=== PATIENT | male | born 1975 ===

== ENCOUNTER 2025-10-23 07:11 | Day surgery (SDC) | payer MEDICAID, SELFPAY ==
--- NOTE | 2025-10-23 07:32 | W.PM.OPSUD ---
Surgery/Procedure H&P Update DATE OF PROCEDURE: October 23, 2025 DATE H&P PERFORMED: 09/24/25 H&P UPDATE INFORMATION: I have reviewed H&P completed within last 30 days, I have examined patient prior to procedure, No changes to prior documentation, H&P is in [facility] EMR on date indicated and Risks and benefits of the procedure reviewed PLANNED PROCEDURE: Operation Date: 10/23/25 08:35 Proposed Procedures p Colonoscopy [id number] G0105 Z12.11(Not Applicable) - Reji Franks MD
[2025-10-23 07:45] VITALS: BP 136/91; PULSE 81; RESP 16; TEMP 36.4; O2SAT 97; BMI 28.3
--- NOTE | 2025-10-23 08:08 | ANES.PREANE2 ---
Pre-Anesthetic Assessment Height/Weight: Height 5 ft 5 in Weight 170 lb Temp Pulse Resp BP Pulse Ox O2 Del Method 97.6 F 81 16 136/91 97 Room Air 10/23/25 07:45 10/23/25 07:45 10/23/25 07:45 10/23/25 07:45 10/23/25 07:45 10/23/25 07:45 Preop Diagnosis: Screening colonoscopy Operation Date: 10/23/25 08:35 Proposed Procedures p Colonoscopy [id number] G0105 Z12.11(Not Applicable) - Reji Franks MD Was Beta Althea taken within 24 hours: N/A Was Clonidine taken within 24 hours: N/A Last intake: Intake Last Liquid Date 10/22/25 Last Liquid Time 23:30 Last Solid Date 10/21/25 Last Solid Time 21:00 Social No alcohol and No tobacco Exam alert, oriented x 3, clear to auscultation bilaterally and regular rate & rhythm Airway Submandibular: within normal limits Cervical ROM: within normal limits Mallampati: Class III Comments: Comments: Edentulous Anesthetic Plan Anesthesia: MAC Other: No prior issues with anesthesia Completed bowel prep Denies any cardiac or pulmonary issues PTSD noted Patient had tick bite leading to an abscess a while back but states he is doing just fine now Plan for MAC anesthesia Medications/Allergies Home Medications ?Medication ?Instructions ?Recorded ?Confirmed ?Last Taken ?Type cholecalciferol (vitamin D3) 50 50 mcg PO DAILY 08/07/25 10/20/25 10/21/25 History mcg (2,000 unit) capsule famotidine 10 mg tablet (Pepcid AC) 20 mg PO BID PRN Heartburn 08/07/25 10/20/25 10/21/25 History fenofibrate nanocrystallized 48 mg 48 mg PO DAILY 08/07/25 10/20/25 10/21/25 History tablet (Tricor) mecobalamin (vitamin B12) 500 mcg 500 mcg PO DAILY 08/07/25 10/20/25 10/21/25 History chewable tablet atorvastatin 20 mg tablet (Lipitor) 40 mg PO DAILY 09/24/25 10/20/25 10/21/25 History hydroxyzine HCl 50 mg tablet 50 mg PO QID PRN insomnia/anxiety 10/09/25 10/20/25 10/21/25 Rx #120 tabs prazosin 5 mg capsule 5 mg PO .HS #30 caps 10/09/25 10/20/25 10/21/25 Rx naproxen 500 mg tablet 500 mg PO Q12H PRN Pain 10/20/25 10/20/25 10/21/25 History venlafaxine 150 mg 75 mg PO DAILY 10/20/25 10/20/25 10/21/25 History capsule,extended release 24 hr (Effexor XR) Allergies Allergy/AdvReac Type Severity Reaction Status Date / Time NKDA Allergy NKDA Uncoded 10/23/25 07:45 [facility] Anesthesia Medical History (Updated 08/07/25 @ 16:48 by Andi Gottlieb MD) Psychiatric care Family History (Updated 09/24/25 @ 09:59 by Aram Raza LPN) Grandmother Cancer Social History Smoking and tobacco/nicotine status: current every day tobacco/nicotine user
[2025-10-23 09:00] VITALS: BP 134/84; PULSE 72; RESP 14; TEMP 36.1; O2SAT 96
[2025-10-23 09:08] VITALS: BP 123/78; PULSE 74; RESP 16; O2SAT 97
[2025-10-23 09:19] VITALS: BP 122/78; PULSE 71; RESP 16; O2SAT 97
--- NOTE | 2025-10-24 09:20 | ANE.PACU2 ---
Inpatient post-anesthesia follow up: Airway intact: Yes Vital signs: Temperature 97.0 F Pulse Rate 71 Respiratory Rate 16 Blood Pressure 122/78 Pulse Oximetry 97 Oxygen Delivery Me thod Room Air Oxygen Flow Rate Fraction of Inspir ed Oxygen Hydration adequate: Yes Nausea and vomiting: No Pain level: 1 Mental status: Baseline
== END 2025-10-23 09:20 | disposition home or self-care (01) ==
PROVIDERS: Family Provider Nurse Practitioner Family; PCP Family Medicine; Visit Provider Surgery
PROC: 0DJD8ZZ Inspection of Lower Intestinal Tract, Via Natural or Artificial Opening Endoscopic (ICD-10-PCS; CPT 45378; principal; 2025-10-23 08:35)
DX: Z12.11 Encounter for screening for malignant neoplasm of colon (principal); Z80.0 Family history of malignant neoplasm of digestive organs; F17.200 Nicotine dependence, unspecified, uncomplicated; F43.10 Post-traumatic stress disorder, unspecified
CPT/HCPCS: 45378; J2704; J7030